=== PATIENT | male | born 1990 | race Caucasian/White ===

== ENCOUNTER 2017-01-31 07:53 | Emergency (ER) | payer BC, OTHER ==
[2017-01-31 08:06] VITALS: BP 132/84
--- NOTE | 2017-01-31 08:32 | UC ---
Abdominal Pain Male HPI - HPI Summary HPI Summary: Last night he began to have a fever and chills without rigors. Temp max was 101. this am he started to have LLQ and Left lower flank pain. No urinary symptoms. no vomiting. no diarrhea. no melena or BRBPR. NO prior abd surgery. - History of Current Complaint Chief Complaint: UCGeneralIllness Stated Complaint: FEVER,ABD PAIN Time Seen by Provider: 01/31/17 08:17 Hx Obtained From: Patient Onset/Duration: Gradual Onset, Lasting Hours Severity Initially: Mild Severity Currently: Moderate Radiates: No Radiates to: Back, LLQ Character: Aching, Cramping, Dull Aggravating Factor(s):: Nothing Alleviating Factor(s): Nothing Associated Signs And Symptoms: Positive: Diaphoresis, Fever. Negative: Chest Pain, Constipation, Blood in Stool, Urinary Symptoms, Decreased Appetite, Vomiting, Diarrhea, Penile Discharge - Risk Factors Testicular Torsion: Negative Cardiac Risk Factors: Negative - Allergies/Home Medications Allergies/Adverse Reactions: Allergies Allergy/AdvReac Type Severity Reaction Status Date / Time Amoxicillin Allergy Difficulty Verified 01/31/17 08:06 Breathing PMH/Surg Hx/FS Hx/Imm Hx Endocrine History Of: Denies: Diabetes Cardiovascular History Of: Denies: Hypertension, Pacemaker/ICD Respiratory History Of: Denies: Asthma GI/ History Of: Denies: Ulcer, Renal Disease Neurological History Of: Denies: CVA Psychological History Of: Reports: Anxiety - ON MEDS Denies: Schizophrenia Cancer History Of: Denies: Lung Cancer, Colorectal Cancer, Breast Cancer, Prostate Cancer, Cervical Cancer - Surgical History Surgical History: Yes Surgery Procedure, Year, and Place: TONSILLECTOMY - Family History Known Family History: Negative: Cardiac Disease, Hypertension, Diabetes - Social History Alcohol Use: None Alcohol Amount: 1 PER YR Substance Use Type: None Smoking Status (MU): Never Smoked Tobacco Review of Systems All Other Systems Reviewed And Are Negative: Yes Physical Exam Triage Information Reviewed: Yes Appearance: Well-Appearing, Well-Nourished, Obese Vital Signs: Initial Vital Signs Temp 98.2 F 01/31/17 07:59 Pulse 100 01/31/17 07:59 Resp 18 01/31/17 07:59 BP 132/84 01/31/17 07:59 Pulse Ox 97 01/31/17 07:59 Vital Signs Reviewed: Yes Eye Exam: Normal Eyes: Positive: Conjunctiva Clear. Negative: Conjunctiva Inflamed ENT Exam: Normal ENT: Positive: Normal ENT inspection, Pharynx normal, TMs normal. Negative: Pharyngeal erythema, Nasal congestion, Nasal drainage Neck exam: Normal Neck: Positive: Supple, Nontender, No Lymphadenopathy. Negative: Nuchal Rigidity Respiratory Exam: Normal Respiratory: Positive: Lungs clear, Normal breath sounds, No respiratory distress, No accessory muscle use. Negative: Respiratory distress, Decreased breath sounds, Accessory muscle use, Crackles, Rhonchi, Stridor, Wheezing, Expiration Cardiovascular Exam: Normal, Other - HR in triage noted to be elevated. now with my repeat it is 90. Cardiovascular: Positive: RRR, No Murmur, Pulses Normal Abdomen Description: Positive: No Organomegaly - No swelling or testicular tenderness or retraction., Soft, Other: - LLQ and left lower flank percussion tenderness without guarding or reboung. Tenderness is illicited only with deep palpation.. Negative: CVA Tenderness (R), CVA Tenderness (L), Distended, Guarding Neurological Exam: Normal Neurological: Positive: Alert, Muscle Tone Normal. Negative: Fatigued, Lethargic, Unresponsive, Abnormal Muscle Tone Psychological Exam: Normal Skin Exam: Normal Skin: Negative: rashes Abd Pain Male Course/Dx - Course Course Of Treatment: Left abd pain and left flank pain with non surgical abd exam. WE have considred atypical appendicitis, infected kidney stone, hernia, serious abd infection, uti, sepsis. THis is most c/w with colitis at this point. he will monitor symptoms for the next 24 hours and return here tomorrow for re eval as it is the weekend. ? pancreatitis noted on ct but this is not c/ w with his presentation. - Differential Dx/Clinical Impression Differential Diagnosis/HQI/PQRI: Appendicitis, Constipation, Diverticulitis, Epididymitis, Gall Bladder Disease, Hepatitis, Ischemic Bowel, Pancreatitis, Peptic Ulcer Disease, Pneumonia, Prostatitis, Renal Colic, Testicular Torsion, Ureteral Stone, Urinary Tract Infection Provider Diagnoses: LLQ pain. Left flank pain. Discharge - Discharge Plan Condition: Good Disposition: HOME Patient Education Materials: Abdominal Pain (ED), Flank Pain (ED) Referrals: Aixa Morfin PA [Primary Care Provider] - Additional Instructions: return here tomorrow for re evaluation unless symptoms have completely resolved.
--- NOTE | 2017-01-31 09:06 | RAD ---
INDICATION: Left flank pain COMPARISON: None TECHNIQUE: Noncontrast axial source images were acquired from the level hemidiaphragms to the symphysis pubis as part of CT imaging for renal stone. Lung bases: The lung bases are clear. Liver: The liver is mildly generous in size. Noncontrast imaging shows no evidence of a hepatic mass or ductal dilatation. Gallbladder: There are no calcified gallstones. There is no evidence of wall thickening or pericholecystic fluid.. Spleen: The spleen is normal in size. The noncontrast CT appearance is normal. Pancreas: Noncontrast imaging shows no pancreatic mass or ductal dilitation. There is a small amount of peripancreatic stranding. Consider early acute pancreatitis and correlation with serum lipase in the appropriate clinical presentation. Adrenal glands: No masses are identified. Kidneys/Bladder: There is a 2 mm upper pole left renal calculus. There are no additional calcifications of urinary significance. There is no CT evidence of hydronephrosis. Noncontrast imaging shows no evidence of a renal mass. The bladder is unremarkable.. Adenopathy: There is no evidence of intraperitoneal or retroperitoneal adenopathy. Evaluation is limited without oral contrast. Fluid collections: There are other no free or localized fluid collections. Vessels: The aorta and iliac vessels are normal in caliber. There are no significant atherosclerotic changes. The IVC appears normal Pelvic organs: The prostate and seminal vesicles appear normal GI tract: Evaluation of the bowel is limited without oral contrast. The stomach, small bowel, and lower GI tract appear grossly normal. There are no obstructive findings. The appendix is visualized and appears normal. Soft tissues: No soft tissue abnormalities of the extraperitoneal abdomen or pelvis are identified. Osseous structures: There are no acute osseous findings. IMPRESSION: 1. Nonobstructive left renal calculus. 2. Mild peripancreatic edema. The CT findings could be consistent with acute pancreatitis given the appropriate clinical presentation. 3. Hepatomegaly.
== END 2017-01-31 09:25 | disposition home or self-care (01) ==
LOC: UCCORT 07:53
DX: R10.32 Left lower quadrant pain (principal); E66.9 Obesity, unspecified; F41.9 Anxiety disorder, unspecified; Z88.1 Allergy status to other antibiotic agents
CPT/HCPCS: 74176; 81003; 99211; G0463

== ENCOUNTER 2018-10-29 07:09 | Emergency (ER) | payer BC ==
--- NOTE | 2018-10-29 08:36 | ED ---
Throat Pain/Nasal Congestion - HPI Summary HPI Summary: 28 yr old male with the complaint of sinus pressure, post nasal drip, fever, chills, coughing. He has frontal sinus pressure. The patient had onset of symptoms over the past 3-4 days. He has a history of DM, took his meds, but did not eat enough, and feels like sugar getting low. He was given juice and crackers and feels better. Accu check 183. Denies CP, SOB. - History of Current Complaint Chief Complaint: UCRespiratory Time Seen by Provider: 10/29/18 08:02 - Allergies/Home Medications Allergies/Adverse Reactions: Allergies Allergy/AdvReac Type Severity Reaction Status Date / Time amoxicillin Allergy Severe Difficulty Verified 10/29/18 07:39 Breathing Home Medications: Home Medications Acetaminophen TAB* [Tylenol TAB*] 650 mg PO Q4H PRN 10/29/18 [History Confirmed 10/29/18] Lisinopril TAB* [Prinivil TAB*] 10 mg PO DAILY 10/29/18 [History Confirmed 10/29] guaiFENesin ER TAB [Mucinex*] 600 mg PO BID 10/29/18 [History Confirmed 10/29/18 ] PMH/Surg Hx/FS Hx/Imm Hx Endocrine/Hematology History: Reports: Hx Diabetes - type 2 Cardiovascular History: Reports: Hx Hypertension Denies: Hx Pacemaker/ICD, Other Cardiovascular Problems/Disorders Respiratory History: Denies: Hx Asthma, Hx Lung Cancer, Other Respiratory Problems/Disorders GI History: Denies: Hx Ulcer, Other GI Disorders History: Denies: Hx Renal Disease Musculoskeletal History: Reports: Hx Arthritis - right wrist Denies: Other Musculoskeletal History Sensory History: Denies: Hx Contacts or Glasses, Hx Hearing Aid Opthamlomology History: Denies: Hx Contacts or Glasses Neurological History: Denies: Other Neuro Impairments/Disorders Psychiatric History: Reports: Hx Anxiety - switched jobs- anxiety gone Denies: Hx Panic Disorder, Hx Schizophrenia - Cancer History Hx Chemotherapy: No - Surgical History Surgery Procedure, Year, and Place: TONSILLECTOMY. right foot fifth metatarsal repair 2016. RIGHT WRIST SURGERY Hx Anesthesia Reactions: No Infectious Disease History: No Infectious Disease History: Denies: Traveled Outside the [place] in Last 30 Days - Family History Known Family History: Negative: Cardiac Disease, Hypertension, Diabetes - Social History Alcohol Use: None Alcohol Amount: 1 PER YR Substance Use Type: Reports: None Smoking Status (MU): Never Smoked Tobacco Review of Systems Positive: Fever, Chills Positive: Sore Throat, Nasal Discharge Positive: Cough All Other Systems Reviewed And Are Negative: Yes Physical Exam Triage Information Reviewed: Yes Vital Signs On Initial Exam: Initial Vitals Temp Pulse Resp BP Pulse Ox 98 F 106 20 157/98 97 10/29/18 07:42 10/29/18 07:42 10/29/18 07:42 10/29/18 07:42 10/29/18 07:42 Vital Signs Reviewed: Yes Appearance: Positive: Well-Appearing, No Pain Distress Skin: Positive: Warm, Skin Color Reflects Adequate Perfusion Head/Face: Positive: Normal Head/Face Inspection Eyes: Positive: EOMI ENT: Positive: Pharynx normal, Nasal congestion, TM red - left with redness, Sinus tenderness Neck: Positive: Nontender Respiratory/Lung Sounds: Positive: Clear to Auscultation, Breath Sounds Present Cardiovascular: Positive: RRR. Negative: Murmur Abdomen Description: Positive: Nontender Musculoskeletal: Positive: Strength/ROM Intact Neurological: Positive: Sensory/Motor Intact, Alert, Oriented to Person Place, Time, CN Intact II-III, Normal Gait, Speech Normal Psychiatric: Positive: Normal - [place] Coma Scale Best Eye Response: 4 - Spontaneous Best Motor Response: 6 - Obeys Commands Best Verbal Response: 5 - Oriented Coma Scale Total: 15 Diagnostics - Vital Signs Vital Signs Temp Pulse Resp BP Pulse Ox 10/29/18 08:07 83 20 143/89 98 10/29/18 07:42 98 F 106 20 157/98 97 - Laboratory Lab Results: Lab Results 10/29/18 Range/Units 08:11 POC Glucose (mg/dL) 183 H (70-100) mg/dL Lab Statement: Any lab studies that have been ordered have been reviewed, and results considered in the medical decision making process. EENT Course/Dx - Course Course Of Treatment: 28 yr old male with sinusitis. Rx Biaxin. FU with PMD. - Diagnoses Provider Diagnoses: Sinusitis, Hypertension Discharge - Sign-Out/Discharge Documenting (check all that apply): Patient Departure All imaging exams completed and their final reports reviewed: No Studies - Discharge Plan Condition: Good Disposition: HOME Prescriptions: Clarithromycin TAB* [Biaxin 500 MG TAB*] 500 mg PO BID #20 tab Patient Education Materials: Sinusitis (ED), Hypertension (ED) Referrals: America Crandall PA [Primary Care Provider] - 2 Days - Billing Disposition and Condition Condition: GOOD Disposition: Home
[2018-10-29 08:45] VITALS: BP 141/65
== END 2018-10-29 08:45 | disposition home or self-care (01) ==
LOC: UCCORT 07:09
DX: J32.9 Chronic sinusitis, unspecified (principal); I10 Essential (primary) hypertension; E11.9 Type 2 diabetes mellitus without complications
CPT/HCPCS: 99212; G0463